=== PATIENT | female | born 1990 | race Caucasian/White ===

== ENCOUNTER 2024-11-10 01:32 | Inpatient (IN) ==
[2024-11-10] MEDS ORDERED: LIDOCAINE 1% LOCAL 20 ML VIAL INFIL PRN (02:06)
[2024-11-10 02:35] LABS: Hematocrit (blood only) 34.9 % (37.0-47.0); Hemoglobin 12.2 g/dl (12.0-16.0); Mean Corpuscular Volume 88.6 fL (80.0-100.0); Mean Platelet Volume 11.8 fL (9.4-12.4); Platelet Count 174 K/uL (130-400); RDW Coefficient of Variation 12.9 % (11.5-14.5); Red Blood Count 3.94 M/uL (4.20-5.40)
--- NOTE | 2024-11-10 03:31 | History & Physical Report ---
Date of Service November 10, 2024 Assessment & Plan (1) Normal labor: Plan fetus category one. admit for active labor. long conversation about pros/cons/risks/benefits of rom. Offered but does not need to do currently. Patient would like to avoid epidural and have natural labor but not sure she can tolerate much more. discussed may need a little more to get past this 7-8cm as this is what she was on arrival about 1.5hours ago. She did consent to arom. Discussed her concerns about epidural==low blood pressure, yoon, affecting baby. Can have at any point, rarely gets too late for getting. Doing well at this point. anticipate . Admission and Anticipated Discharge Date Admission Date: November 10, 2024 History of Present Illness Chief Complaint: contractions Primary Care Provider: NO PCP Patient is a 34yowf with iup at 40 1/7 who represents with worsening and closer contractions. Still having some bleeding. no lof. FM. 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 *FOB to be tested--neg (but under pts name and see task from 06/01) Low lying placenta *recheck placentation at 32wks *1.8cm at 32 weeks *ok for vaginal delivery if >1.6cm Recheck posterior placenta 2.6cm from ios RESOLVED Shortened cervix at guillermo u/s--2cm *start vaginal progesterone *recheck cx length in 2wks 22 weeks--3.3cm *offered MFM consult OB Labs: Blood Type O Positive 04/05/24 Antibody Screen NEGATIVE 04/05/24 Hgb 10.7 g/dl (12.0-16.0) L 08/18/24 Hct 30.9 % (37.0-47.0) L 08/18/24 MCV 87.5 fL (80.0-100.0) 04/05/24 Plt Count 209 K/uL (130-400) 04/05/24 Rubella IgG Antibody Immune (Immune) 04/05/24 RPR Nonreactive (Nonreactive) 04/05/24 Treponema pallidum Ab Negative (Negative) 08/18/24 Hep Bs Antigen NON-REACTIVE (NON-REACTIVE) 04/05/24 Hepatitis C Antibody Neg (Neg) 12/24/18 Hepatitis C Ab (EIA) NON-REACTIVE (NON-REACTIVE) 04/05/24 HIV (1&2) Ag & Ab Conf NON-REACTIVE (NON-REACTIVE) 04/05/24 Glucose 1 Hr 50 gm 126 mg/dl (70-130) 08/18/24 Maternal Serum AFP 45.3 ng/mL 05/26/24 OB Optional Labs: Chlamydia trachomatis RNA Not Detected (NotDetected) 04/05/24 Neisseria gonorrhoeae RNA Not Detected (NotDetected) 04/05/24 Thyroid Stimulating Hormone (TSH) 1.894 uIu/ml (0.300-4.500) 08/29/22 Alpha Fetoprotein Triple Screen SEE NOTE 05/26/24 Labs Reviewed: low risk panorama--akh [facility] afp neg--ak gbs neg Allergies Allergy/AdvReac Type Severity Reaction Status Date / Time Penicillins Allergy Mild Hives Verified 11/09/24 11:27 Home Medications Medication Instructions Recorded Confirmed Type [id number] 1 tab PO DAILY 03/24/24 11/09/24 History [ Plus] breast pump #1 ea 07/07/24 11/04/24 Rx ferrous sulfate 1 tab PO DAILY 09/01/24 11/09/24 History Patient History Medical History Chicken pox Cervical high risk HPV (human papillomavirus) test positive Infertility counseling Vaginitis HPV (human papilloma virus) infection Surgical History Hx of tonsillectomy H/O wisdom tooth extraction Status post hip surgery History of colposcopy Family History Grandmother Lung cancer Denies family history of Ovarian cancer Breast cancer Colorectal cancer Social History Smoking Status: Never smoker Do You Dip or Chew Tobacco: No; Hx Alcohol Use: No Hx Substance Use: No Preferred Language: Telugu Communication Ability: Effective 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 Other Information That Helps Us Care for You: No Feels Safe at Home: Yes Safety Concerns: Feels Safe At This Time Assistive Devices: None Physical Exam Constitutional: WD/WN, vitals as above Gastrointestinal (Abdomen): soft, gravid, nt Psychiatric: A+Ox3, euthymic affect Genitourinary: cx--7-8/90/-1 toco--q2-4min efm--130s wtih mod variability, accels to 150s, no decels arom--minimal clear fluid Results & Data Vital Signs (Past 12 Hours) Vital Signs Temp Pulse Resp BP Pulse Ox 11/10/24 03:27 87 99 11/10/24 03:22 76 100 11/10/24 03:17 85 99 11/10/24 03:12 88 98 11/10/24 03:07 78 99 11/10/24 03:02 76 99 11/10/24 02:57 79 99 11/10/24 02:52 82 100 11/10/24 02:47 81 99 11/10/24 01:48 68 137/83 11/10/24 01:47 36.4 C L 16 Coding Level of Care Code None Diagnoses Normal labor O80; Z37.9
[2024-11-10] MEDS: SODIUM CHLORIDE 0.9% 1,000 ML IV SCH (03:50)
--- NOTE | 2024-11-10 04:00 | Anesthesiology Consultation ---
Date of Service November 10, 2024 Assessment & Plan (1) Encounter for pre-operative examination: Chart Review Chart Review: Acceptable Risk for Labor Epidural History Height/Weight Height: 5 ft 6 in Weight: 89.811 kg Allergies Allergy/AdvReac Type Severity Reaction Status Date / Time Penicillins Allergy Mild Hives Verified 11/09/24 11:27 Medications Home Medications Medication Instructions Recorded Confirmed Last Taken [id number]-[id number]-FA 1 tab PO DAILY 03/24/24 11/09/24 11/08/24 20:00 [ Plus] breast pump #1 ea 07/07/24 11/04/24 Unknown ferrous sulfate 1 tab PO DAILY 09/01/24 11/09/24 11/08/24 20:00 Past Medical History Medical History Chicken pox Cervical high risk HPV (human papillomavirus) test positive Infertility counseling Vaginitis HPV (human papilloma virus) infection Past Family History Family History Grandmother Lung cancer Denies family history of Ovarian cancer Breast cancer Colorectal cancer Past Surgical History Surgical History Hx of tonsillectomy H/O wisdom tooth extraction Status post hip surgery History of colposcopy Social History Smoking Status: Never smoker Do You Dip or Chew Tobacco: No Hx Alcohol Use: No Hx Substance Use: No Physical Exam Vital Signs Last Vital Signs Temp 36.4 C L 11/10/24 01:47 Pulse 73 11/10/24 03:57 Resp 16 11/10/24 01:47 BP 137/83 11/10/24 01:48 Pulse Ox 100 11/10/24 03:57 Testing Laboratory Results 11/10/24 02:17
[2024-11-10] MEDS: BUPIVACAINE 0.25% PF 30 ML VIAL ONE (04:29)
[2024-11-10] MEDS: fentaNYL citrate PF 100 MCG/2 ML VIAL ONE (04:29)
[2024-11-10] MEDS: fentANYL 2 MCG/ML BUPIVacaine 0.125%-NSS 100ML BAG ONE (04:29)
[2024-11-10] MEDS: LIDOCAINE 2%/EPINEPHRINE 1:200,000 20 ML PF ONE (04:29)
[2024-11-10] MEDS: SODIUM CHLORIDE 0.9% PF INJ 10 ML VIAL ONE (04:29)
[2024-11-10] MEDS ORDERED: NALOXONE HCL 1 MG in SODIUM CHLORIDE 0.9% 1,000 ML IV PRN (04:33)
[2024-11-10] MEDS ORDERED: LIDOCAINE 2% MPF LOCAL 5 ML VIAL EPI PRN (04:33)
[2024-11-10] MEDS ORDERED: ROPIVACAINE 0.5% PF 5 MG/ML 20 ML VIAL EPI PRN (04:33)
[2024-11-10] MEDS ORDERED: fentaNYL citrate PF 100 MCG/2 ML VIAL EPI PRN (04:33)
[2024-11-10] MEDS ORDERED: ONDANSETRON INJ 2 MG/ML 2 ML VIAL IV PRN (04:33)
[2024-11-10] MEDS ORDERED: ePHEDrine sulfate 50 MG/ML AMP IV PRN (04:33)
[2024-11-10] MEDS ORDERED: fentANYL 2 MCG/ML BUPIVacaine 0.125%-NSS 100ML BAG EPI PRN (04:33)
[2024-11-10] MEDS ORDERED: BUPIVACAINE 0.25% PF 30 ML VIAL EPI PRN (04:33)
[2024-11-10] MEDS ORDERED: NALOXONE HCL 0.4 MG/1 ML VIAL/CARP IV PRN (04:33)
[2024-11-10] MEDS ORDERED: SODIUM CHLORIDE 0.9% PF INJ 10 ML VIAL EPI PRN (04:33)
[2024-11-10] MEDS: ePHEDrine sulfate 50 MG/ML AMP ONE (06:25)
[2024-11-10] MEDS: LIDOCAINE 2%/EPINEPHRINE 1:200,000 20 ML PF EPI STA (06:26)
[2024-11-10] MEDS: SODIUM CHLORIDE 0.9% PF INJ 10 ML VIAL EPI STA (06:26)
[2024-11-10] MEDS: fentaNYL citrate PF 100 MCG/2 ML VIAL EPI STA (06:26)
[2024-11-10] MEDS: BUPIVACAINE 0.25% PF 30 ML VIAL EPI STA (06:27)
[2024-11-10] MEDS ORDERED: NURSING L&D Epidural Breakthrough Pain Update ONE (07:05)
[2024-11-10] MEDS: OXYTOCIN 30 UNITS/NSS 30 UNITS/500 ML BAG IV PRN (08:27)
--- NOTE | 2024-11-10 08:50 | Delivery Summary ---
Vaginal Delivery Summary Date of Service November 10, 2024 Vaginal Delivery Summary and 2nd Degree LAC Pre-operative Diagnosis: at 40 1/7 active labor Post-operative Diagnosis: same Procedure: arom epidural second degree lac and left labial lac and repair QBL: 175cc Anesthesia: epidural Procedure: The patient presented in active labor. She underwent arom and epidural. She progressed to c/c/+2. The patient pushed for less than 30 min to deliver a viable male in tamiko position. The nose and mouth were bulb suctioned on the perineum and the rest of the was then delivered without difficulty. The baby was vigorous. The nose and mouth were again bulb suctioned and the infant was placed in the maternal abdomen for drying and attention. Cord was clamped and cut at one minute of life. Cord blood and segment obtained. Placenta delivered spontaneous, intact with a three vessel cord. Cervix/sulci/rectum were intact. A second degree perineal laceration and left labial laceration were repaired in the normal standard fashion. Hemostasis obtained with dilute pitocin and fundal massage. Apgars were 8/9. Mother and baby doing well at the end of the delivery. [facility] Vaginal Delivery Charge Delivery Type Details: and 2nd Degree LAC
[2024-11-10] MEDS ORDERED: bisacodyL 10 MG SUPP PR PRN (08:51)
[2024-11-10] MEDS ORDERED: HYDROCORTISONE ACETATE 25 MG SUPP PR PRN (08:51)
[2024-11-10] MEDS ORDERED: oxyCODONE/ACETAMINOPHEN 5mg/325mg TAB PO PRN (08:51)
[2024-11-10] MEDS ORDERED: OXYTOCIN 30 UNITS/NSS 30 UNITS/500 ML BAG IV PRN (08:51)
--- NOTE | 2024-11-10 09:20 | Anesthesia Procedure Note ---
Date of Service November 10, 2024 Anesthesia Post Epidural Note Vital Signs Vital Signs: Temp Pulse Resp BP Pulse Ox 36.6 C 83 18 120/78 98 11/10/24 08:30 11/10/24 09:18 11/10/24 09:00 11/10/24 09:18 11/10/24 08:22 Pain Intensity Abdomen: Pain Intensity: 4 Notes Mental Status: alert / awake / arousable Nausea / Vomiting: adequately controlled Pain: adequately controlled Airway Patency, RR, SpO2: stable & adequate BP & HR: stable & adequate Hydration State: stable & adequate Neuraxial Anesthesia: was administered and sensory block is resolving Anesthetic Complications: no major complications apparent and Pt Satisfied with anesthetic care Epidural: Removed without complications and With tip intact
[2024-11-10] MEDS: IBUPROFEN 600 MG TAB PO PRN (12:22)
[2024-11-10] MEDS: BENZOCAINE 20% SPRY 85 APPLN/85 GM CAN EXT PRN (12:23)
[2024-11-10] MEDS: DIPHTHER/TETAN/PERTUS Vaccine (Tdap, Adol/Adult) 0.5mL IM ONE (16:01)
[2024-11-10] MEDS: ACETAMINOPHEN 325 MG TAB PO PRN (19:24)
[2024-11-10] MEDS: DOCUSATE SODIUM 100 MG CAP PO SCH (20:42)
--- NOTE | 2024-11-11 06:48 | Obstetrical Progress Note ---
Date of Service November 11, 2024 Assessment & Plan (1) Encounter for pre-operative examination: Patient doing well. Minimal bleeding, no extremity pain she has no calf tenderness she is tolerating a regular diet she is voiding well she has no depression Instructions are reviewed and when to call she is advised to call the office for a follow-up appointment and sooner if she is having a problem Subjective Ambulation: ambulating normally Voiding: no voiding problems Passing Gas:: Yes Diet Tolerance:: regular diet Physical Exam Constitutional WD/WN, vitals as above well developed and well nourished Respiratory normal respiratory effort, lungs clear to auscultation normal respiratory effort Cardiovascular RRR, no murmur, no edema Gastrointestinal (Abdomen) normal bowel sounds, soft, nontender, no hepatosplenomegaly Results & Data Vital Signs (Past 12 Hours) Vital Signs Temp Pulse Resp BP Pulse Ox O2 Del Method 11/11/24 03:30 98.2 F 85 16 126/85 98 Room Air 11/10/24 23:30 97.7 F 88 16 112/71 99 Room Air 11/10/24 19:25 98.1 F 90 16 130/86 98 Room Air
[2024-11-11] MEDS: PRENATAL VITAMIN 1 TAB PO SCH (07:31)
[2024-11-11 09:55] LABS: Hematocrit (blood only) 26.9 % (37.0-47.0); Hemoglobin 9.2 g/dl (12.0-16.0)
[2024-11-11 19:06] VITALS: RESP 16
[2024-11-11] MEDS: bisacodyL 5 MG TABEC PO SCH (19:56)
[2024-11-11 23:12] VITALS: O2SAT 98
[2024-11-12 07:52] VITALS: BP 109/74; TEMP 98.2
--- NOTE | 2024-11-12 08:52 | Obstetrical Progress Note ---
Date of Service November 12, 2024 Assessment & Plan (1) Encounter for care and examination after delivery: satisfactory course follow up in 6 weeks or PRN discharge home today Subjective Ambulation: ambulating normally Voiding: no voiding problems Passing Gas:: Yes Diet Tolerance:: regular diet Lochia:: Small Feeding Type:: breast feeding feels well- some concerns but nursing staff addressing these issues Review of Systems All systems reviewed & are unremarkable except as noted in HPI & below Physical Exam Constitutional WD/WN, vitals as above Psychiatric A+Ox3, euthymic affect Genitourinary OB Exam Abdomen: + fundal height Fundus: + firm and + relation to umbilicus (2 below U) Results & Data Vital Signs (Past 12 Hours) Vital Signs Temp Pulse Pulse Resp BP Pulse Ox O2 Del Method 11/12/24 07:27 98.2 F 89 16 109/74 98 Room Air 11/11/24 23:10 98.4 F 83 16 108/71 98 Room Air
[2024-11-12 10:04] VITALS: PULSE 83
== END 2024-11-12 11:52 | disposition home or self-care (01) | DRG 806 ==
LOC: OPB 01:32 → 4S1 01:35 → 4E2 10:47